=== PATIENT | male | born 1980 | race Caucasian/White ===

== ENCOUNTER 2019-05-22 06:01 | Day surgery (SDC) | payer BC, SELFPAY ==
[2019-05-21 14:21] VITALS: BMI 31.3
[2019-05-22 06:15] VITALS: BP 135/98; PULSE 63; RESP 18; TEMP 36.6; O2SAT 97
[2019-05-22] MEDS: sodium chloride 0.9% 1,000 ML 30 ML IV (06:45)
--- NOTE | 2019-05-22 06:46 | ANES.PREANES ---
Pre-Anesthetic Assessment Pre-Anesthetic Assessment: Height/Weight: Height 1.83 m Weight 104.78 kg Temp Pulse Resp BP Pulse Ox 97.8 F 63 18 135/98 97 05/22/19 06:15 05/22/19 06:15 05/22/19 06:15 05/22/19 06:15 05/22/19 06:15 Preop Diagnosis: umbilical hernia Proposed Procedure: Operation Date: 05/22/19 07:00 Proposed Procedures p Umbilical Hernia Repair 38194 K42.9(Not Applicable) - Bird Avelar MD Familial anesthetic complications: NO trouble Was Beta Stefano taken within 24 hours: N/A Last intake: Intake NPO > 8 hrs Last Liquid Date 05/21/19 Last Solid Date 05/21/19 Social: Social History: No alcohol and No tobacco Exam: Pre-Anes Outpt Exam: alert, oriented x 3, clear to auscultation bilaterally and regular rate & rhythm Airway: Cervical ROM: WNL MP: 3 Additional comments: implant Pulmonary: Pulmonary: Asthma Comments: took inhaler this AM, triggered by activity (uses daily 3-4x a day) CV/HEM: CV/HEM: None reported : : None reported Hepatic: Hepatic: None reported GI: GI: None reported Metabolic: Metabolic: None reported Musc/skel: Musc/skel: None reported Neuropsych: Neuropsych: None reported Anesthetic Plan: ASA status: II Anesthesia: General Meds/Allergies Current Medications: Current Medications Generic Name Dose Route Start Last Admin Trade Name Freq PRN Reason Stop Dose Admin Sodium Chloride 1,000 mls @ 30 ml s/hr 05/21/19 14:15 05/22/19 06:45 Sodium Chloride 0.9% IV 05/22/19 14:14 30 mls/hr .Q24H KAYLAN Administration Data Anesthesia Cardiac Studies: No Data to Display
--- NOTE | 2019-05-22 06:50 | PM.HPUD ---
H&P update H&P Update: DATE OF SURGERY/PROCEDURE: 05/22/19 DATE H&P PERFORMED: 03/20/19 H&P UPDATE INFORMATION: No changes to prior documentation and H&P to be scanned into chart PREOP DIAGNOSIS: Umbilical hernia PLANNED PROCEDURE: Operation Date: 05/22/19 07:00 Proposed Procedures p Umbilical Hernia Repair [id number] K42.9(Not Applicable) - Bird Avelar MD Conscious Sedation: Patient reassessed prior to sedation, with no change noted: Yes PHYSICAL EXAM: alert and oriented x 3 OTHER PERTINENT EXAM FINDINGS: Abdomen: Umbilical hernia Full H&P Medications/Allergies: Current Medications: Current Medications Generic Name Dose Route Start Last Admin Trade Name Freq PRN Reason Stop Dose Admin Sodium Chloride 1,000 mls @ 30 ml s/hr 05/21/19 14:15 05/22/19 06:45 Sodium Chloride 0.9% IV 05/22/19 14:14 30 mls/hr .Q24H KAYLAN Administration
--- NOTE | 2019-05-22 07:02 | PM.HPUD ---
H&P update H&P Update: DATE OF SURGERY/PROCEDURE: 05/22/19 DATE H&P PERFORMED: 03/20/19 PLANNED PROCEDURE: Operation Date: 05/22/19 07:00 Proposed Procedures p Umbilical Hernia Repair 00952 K42.9(Not Applicable) - Bird Avelar MD Full H&P HPI: PRIMARY INDICATION/DIAGNOSIS FOR SURGICAL PROCEDURE: umbililcal hernia PLANNED PROCEDURE: umbilical hernia repair ROS: ROS: negative except for HPI Medications/Allergies: Current Medications: Current Medications Generic Name Dose Route Start Last Admin Trade Name Freq PRN Reason Stop Dose Admin Sodium Chloride 1,000 mls @ 30 ml s/hr 05/21/19 14:15 05/22/19 06:45 Sodium Chloride 0.9% IV 05/22/19 14:14 30 mls/hr .Q24H KAYLAN Administration Perinent History: Family History: nil relevant Pertinent Exam Findings: PHYSICAL EXAM: alert and oriented x 3 OTHER PERTINENT EXAM FINDINGS: Abdomen: soft, NT umbilical hernia repair A&P Assessment and plan (1) Umbilical hernia: Plan for open repair of umbilical hernia Status: Acute Code(s): K42.9 - Umbilical hernia without obstruction or gangrene
[2019-05-22 07:50] VITALS: BP 145/85; PULSE 66; RESP 16; TEMP 36.7; O2SAT 99
[2019-05-22 07:55] VITALS: BP 145/94; PULSE 60; RESP 16; O2SAT 99
[2019-05-22 08:00] VITALS: BP 145/91; PULSE 63; RESP 16; TEMP 36.6; O2SAT 93
--- NOTE | 2019-05-22 08:11 | SUR.PHASEI ---
0805 PT TO OPS AWAKE ALERT DENIES PAIN TO ROOM, VSS PT REQUESTS WATER TO SIP ON. ABD SOFT DRESSING D/I
[2019-05-22 08:18] VITALS: BP 127/91; PULSE 67; RESP 18; TEMP 36.6; O2SAT 94
[2019-05-22 08:41] VITALS: BP 130/84; PULSE 68; RESP 18; O2SAT 96
[2019-05-22] MEDS: HYDROcodone-acetaminophen 5-325 mg Tablet 1 TAB PO (09:01)
--- NOTE | 2019-05-22 09:15 | PM.OP ---
Operative Report Date of procedure: 05/22/19 Pre-op Diagnosis: Umbilical hernia Post-op Diagnosis: 1 cm incarcerated umbilical hernia containing omentum Procedure Done: Open primary repair of umbilical hernia Pathology: none sent Surgeon: Bird Avelar Anesthesia: General Estimated blood loss (mL): 10 Condition: stable Disposition: PACU Procedure: The patient was taken to the operating room and intubated under general anesthesia after IV antibiotic had been administered. The abdomen was prepped and draped in a sterile manner. A 2 cm infraumbilical curvilinear incision was made using a 15 blade, a hernial sac dissected out using electrocautery and dissection with hemostats. The hernial sac was opened and omentum was reduced into the peritoneal cavity. Interrupted sutures using 0 Vicryl was used to close the hernial defect without any tension. The subcutaneous tissue was approximated using 3-0 Vicryl and skin was closed using running subcuticular 4-0 Monocryl sutures. Dermabond was then applied and 10 mL of 0.5% Marcaine was infiltrated around the incision. A 2 x 2 gauze was then placed within the umbilicus and sterile dressings are applied. The patient was stable throughout the procedure.
--- NOTE | 2019-06-08 12:40 | W.PM.OPSFHP ---
Same Day Surgery H&P Indication for Procedure/HPI DATE OF PROCEDURE: June 08, 2019 CHIEF COMPLAINT/INDICATIONFOR SURGICAL PROCEDURE: Umbilical hernia PREOP DIAGNOSIS: Umbilical hernia PLANNED PROCEDRUE: Operation Date: 05/22/19 07:00 Proposed Procedures p Umbilical Hernia Repair 27345 K42.9(Not Applicable) - Bird Avelar MD Medications/Allergies* Home Medications Medication Instructions Recorded Confirmed Type ProAir HFA 1 inh INHALATION QID PRN 05/22/19 06/07/19 History Allergies/Adverse Reactions Allergy/AdvReac Type Severity Reaction Status Date / Time No Known Allergies Allergy Verified 05/22/19 06:16 Pertinent History/Comorbid Conditions* Medical History (Updated 06/07/19 @ 10:58 by Bird Avelar MD) CPAP (continuous positive airway pressure) dependence Surgical History (Updated 06/07/19 @ 10:59 by Bird Avelar MD) H/O oral surgery History of umbilical hernia repair 05/22/2019 Pertinent Exam Findings alert, oriented x 3 and regular rate & rhythm Abdomen: umbilical hernia Recommendations Surgery/Procedure today Coding Level of Care Code Acute Banana Room Cutter for Chg Isaac
== END 2019-05-22 09:10 | disposition home or self-care (01) ==
PROVIDERS: Family Provider Nurse Practitioner; PCP Nurse Practitioner Family; Visit Provider Surgery
PROC: (CPT 49587; principal; 2019-05-22 07:00)
DX: K42.0 Umbilical hernia with obstruction, without gangrene (principal); J45.909 Unspecified asthma, uncomplicated
CPT/HCPCS: 49587; 12345; J0690; J1100; J2405; J2704; J2710; J3010; J3490; J7030

== ENCOUNTER 2019-10-04 06:49 | Outpatient (CLI) | payer BC, SELFPAY ==
--- NOTE | 2019-10-04 10:48 | PFTS_ITS ---
Date of Study:10/04/19 Date of Dictation: MECHANICS: Forced vital capacity (FVC) is normal. Forced expiratory volume in one second (FEV1) is normal. FEV1/FVC is normal. FLOW VOLUME LOOP: Mild scooping likely secondary to small airways disease. LUNG VOLUMES: Total lung capacity (TLC) is normal. Residual volume (RV) is normal. DIFFUSING CAPACITY FOR CARBON MONOXIDE: Normal. INTERPRETATION: The pulmonary function tests are normal. There is no significant postbronchodilator response. The flow volume loop shows mild scooping likely secondary to small airways disease. Lung volumes are normal. Gas exchange is normal. MTDD
== END 2019-10-04 06:50 | disposition home or self-care (01) ==
LOC: RT 06:51
PROVIDERS: PCP Nurse Practitioner Family; Visit Provider Internal Medicine Critical Care Medicine
DX: J45.909 Unspecified asthma, uncomplicated (principal)
CPT/HCPCS: 94060; 94726; 94729; J7611

== ENCOUNTER → 2020-08-26 16:29 | Outpatient (BNVA) | payer BC, SELFPAY | PROVIDERS: PCP Nurse Practitioner Family; Visit Provider Internal Medicine Critical Care Medicine | DX: J45.909 Unspecified asthma, uncomplicated (principal); E55.9 Vitamin D deficiency, unspecified; L25.9 Unspecified contact dermatitis, unspecified cause; Z79.899 Other long term (current) drug therapy; Z13.6 Encounter for screening for cardiovascular disorders | CPT/HCPCS: 80053; 80061; 81003; 82306; 82785; 83036; 84439; 84443; 85025; 86003 ==

== ENCOUNTER → 2020-08-28 07:55 | Outpatient (BNVA) | payer BC, SELFPAY | PROVIDERS: PCP Nurse Practitioner Family; Visit Provider Nurse Practitioner Family | DX: E53.8 Deficiency of other specified B group vitamins (principal) | CPT/HCPCS: 82607 ==

== ENCOUNTER 2022-08-11 07:10 | Day surgery (SDC) | payer BC, SELFPAY ==
[2022-08-09 11:38] VITALS: BMI 31.1
[2022-08-11 07:31] VITALS: BP 135/97; PULSE 73; RESP 18; TEMP 36.4; O2SAT 96
[2022-08-11] MEDS: sodium chloride 0.9% 1,000 ML 30 ML IV (07:40)
--- NOTE | 2022-08-11 08:42 | PM.HP ---
Providers/Chief Complaint Primary Care Provider: Kanika Casiano APN Chief Complaint: K21.9, K62.5 History of Present Illness Ra Dolan is a 41 year old male here for EGD and colonoscopy Medications/Allergies Home Medications Medication Instructions Recorded Confirmed Last Taken Type cholecalciferol (vitamin D3) 1,250 1,250 mcg PO .WEEKLY 08/05/19 08/11/22 07/28/22 History mcg (50,000 unit) capsule (Optimal D3) betamethasone valerate 0.1 % 1 applic topical DAILY PRN skin 08/26/20 08/11/22 Unknown Rx topical cream irritation 14 days #45 grams ketoconazole 2 % topical cream 1 applic topical PRN PRN Rash 08/26/20 08/11/22 Unknown History albuterol sulfate 90 mcg/actuation 1 inh inhalation QID PRN Shortness 09/17/20 08/11/22 08/11/22 Rx aerosol inhaler (ProAir HFA) Of Breath #8.5 grams budesonide-formoterol HFA 80 2 puff inhalation BID #10.2 grams 09/23/21 08/11/22 08/09/22 Rx mcg-4.5 mcg/actuation aerosol inhaler (Symbicort) fluticasone propionate 50 1 spray intranasal DAILY 08/09/22 08/11/22 Unknown History mcg/actuation nasal spray,suspension Allergies Allergy/AdvReac Type Severity Reaction Status Date / Time No Known Allergies Allergy Verified 07/06/22 14:20 PFSH Acute PFSH: Medical History Asthma Blood pressure check Chronic sinusitis Contact dermatitis CPAP (continuous positive airway pressure) dependence Headache Hypertension screen Medication management PHIL on CPAP Vitamin D deficiency Surgical History H/O melanoma excision H/O oral surgery History of umbilical hernia repair 05/22/2019 Family History Father Asthma Allergic rhinitis Social History Smoking and tobacco status: never smoked Alcohol intake: current Alcohol intake frequency: few times a month Lives independently: Yes Household members: spouse Marital status: Current occupational status: employed Current occupation: [employer] Current gender identity: Male Vitals/I&O/Wt Last Vital Signs Temp 97.6 F 08/11/22 07:31 Pulse 73 08/11/22 07:31 Resp 18 08/11/22 07:31 BP 135/97 08/11/22 07:31 Pulse Ox 96 08/11/22 07:31 O2 Del Method Room Air 08/11/22 07:31 Weight last 48 hrs Weight 230 lb A&P Assessment and plan (1) Blood per rectum: (2) GERD (gastroesophageal reflux disease): Plan EGD Diagnostic colonoscopy The risks and benefits of the procedure, including bleeding, infection, intestinal perforation requiring surgery, missed lesion were explained to the patient. The patient is understanding of the risks and wishes to proceed. Attestations Medical Necessity Statement*: Home Coding Level of Care Code Acute Code for Chg Fwd Diagnoses Blood per rectum K62.5 GERD (gastroesophageal reflux disease) K21.9
--- NOTE | 2022-08-11 08:46 | ANES.PREANE2 ---
Pre-Anesthetic Assessment Height/Weight: Height 1.83 m Weight 104.326 kg Temp Pulse Resp BP Pulse Ox O2 Del Method 97.6 F 73 18 135/97 96 Room Air 08/11/22 07:31 08/11/22 07:31 08/11/22 07:31 08/11/22 07:31 08/11/22 07:31 08/11/22 07:31 Preop Diagnosis: Umbilical hernia Operation Date: 08/11/22 08:45 Proposed Procedures p [id number] egd [id number] colon K21.9, K62.5(Not Applicable) - DO taylor Villafuerte Colonoscopy(Not Applicable) - Jeremiah Doshi DO Familial anesthetic complications: none Was Beta Stefano taken within 24 hours: N/A Was Clonidine taken within 24 hours: N/A Last intake: Intake Last Liquid Date 08/10/22 Last Liquid Time 22:00 Last Solid Date 08/09/22 Last Solid Time 22:00 Last Intake: 22:00 Social No alcohol and No tobacco Exam alert, oriented x 3, clear to auscultation bilaterally and regular rate & rhythm Airway Submandibular: within normal limits Cervical ROM: within normal limits Mallampati: Class II Dentition: full Pulmonary Asthma (monthly) and Sleep Apnea (CPAP) CV/HEM None reported None reported Hepatic None reported GI Gastroesophageal Reflux Disease Metabolic None reported Musc/skel None reported Neuropsych None reported Anesthetic Plan ASA status: 2 Anesthesia: MAC Medications/Allergies Home Medications Medication Instructions Recorded Confirmed Last Taken Type cholecalciferol (vitamin D3) 1,250 1,250 mcg PO .WEEKLY 08/05/19 08/11/22 07/28/22 History mcg (50,000 unit) capsule (Optimal D3) betamethasone valerate 0.1 % 1 applic topical DAILY PRN skin 08/26/20 08/11/22 Unknown Rx topical cream irritation 14 days #45 grams ketoconazole 2 % topical cream 1 applic topical PRN PRN Rash 08/26/20 08/11/22 Unknown History albuterol sulfate 90 mcg/actuation 1 inh inhalation QID PRN Shortness 09/17/20 08/11/22 08/11/22 Rx aerosol inhaler (ProAir HFA) Of Breath #8.5 grams budesonide-formoterol HFA 80 2 puff inhalation BID #10.2 grams 09/23/21 08/11/2223 Rx mcg-4.5 mcg/actuation aerosol inhaler (Symbicort) fluticasone propionate 50 1 spray intranasal DAILY 08/09/22 08/11/22 Unknown History mcg/actuation nasal spray,suspension hydrocortisone 2.5 % topical cream 1 applic [place] QID 10 days #30 grams 08/11/22 Unknown Rx with perineal applicator (Anusol-HC) Allergies Allergy/AdvReac Type Severity Reaction Status Date / Time No Known Allergies Allergy Verified 07/06/22 14:20 Current Medications Generic Name Dose Route Start Last Admin Trade Name Freq PRN Reason Stop Dose Admin Sodium Chloride 1,000 mls @ 30 mls/hr 08/11/22 07:30 08/11/22 07:40 Sodium Chloride 0.9% IV 08/12/22 07:29 30 mls/hr .Q24H KAYLAN Administration PFSH Anesthesia Medical History Asthma Blood pressure check Chronic sinusitis Contact dermatitis CPAP (continuous positive airway pressure) dependence Headache Hypertension screen Medication management PHIL on CPAP Vitamin D deficiency Surgical History H/O melanoma excision H/O oral surgery History of umbilical hernia repair 05/22/2019 Family History Father Asthma Allergic rhinitis Social History Smoking and tobacco status: never smoked Alcohol intake: current Alcohol intake frequency: few times a month Substance/Drug Use: never Lives independently: Yes Household members: spouse Marital status: Current occupational status: employed Current occupation: O[employer] Current gender identity: Male Data Anesthesia Cardiac Studies: No Data to Display
[2022-08-11 09:45] VITALS: BP 127/81; PULSE 76; RESP 16; TEMP 36.4; O2SAT 94
[2022-08-11 09:50] VITALS: BP 104/75; PULSE 62; RESP 18; O2SAT 95
[2022-08-11 10:01] VITALS: BP 107/80; PULSE 63; RESP 18; O2SAT 95
--- NOTE | 2022-08-11 14:12 | ANE.PACU2 ---
Inpatient post-anesthesia follow up: Airway intact: Yes Vital signs: Temperature 97.5 F Pulse Rate 63 Respiratory Rate 18 Blood Pressure 107/80 Pulse Oximetry 95 Oxygen Delivery Me thod Room Air Oxygen Flow Rate 3 Fraction of Inspir ed Oxygen Hydration adequate: Yes Nausea and vomiting: No Pain level: 2 Mental status: Baseline
== END 2022-08-11 10:16 | disposition home or self-care (01) ==
PROVIDERS: PCP Nurse Practitioner; Visit Provider Surgery
PROC: 0DJ08ZZ Inspection of Upper Intestinal Tract, Via Natural or Artificial Opening Endoscopic (ICD-10-PCS; CPT 43235; principal; 2022-08-11 08:45)
PROC: 0DJD8ZZ Inspection of Lower Intestinal Tract, Via Natural or Artificial Opening Endoscopic (ICD-10-PCS; CPT 45378; 2022-08-11 08:45)
DX: D12.0 Benign neoplasm of cecum (principal); K64.8 Other hemorrhoids; K21.9 Gastro-esophageal reflux disease without esophagitis; J45.909 Unspecified asthma, uncomplicated; G47.33 Obstructive sleep apnea (adult) (pediatric); Z79.899 Other long term (current) drug therapy
CPT/HCPCS: 43239; 45385; 88305; J2704; J7030

== ENCOUNTER → 2023-08-18 08:28 | Outpatient (BNVA) | payer BC, SELFPAY | PROVIDERS: PCP Nurse Practitioner Family; Visit Provider Nurse Practitioner Family | DX: Z79.899 Other long term (current) drug therapy (principal); R53.83 Other fatigue; Z13.6 Encounter for screening for cardiovascular disorders; J45.909 Unspecified asthma, uncomplicated | CPT/HCPCS: 80053; 80061; 81003; 83036; 84402; 84403; 84443; 85025 ==

== ENCOUNTER 2024-08-27 09:22 | Day surgery (SDC) | payer BC, SELFPAY ==
--- NOTE | 2024-08-27 09:50 | P.ANESASSM_ITS ---
Pre-Anesthetic Assessment Height/Weight: Height 1.83 m Preop Diagnosis: Previous Polyps Operation Date: 08/27/24 11:00 Proposed Procedures p Colonoscopy [id number] G0121 Z12.11(Not Applicable) - Delmer Mane MD Familial anesthetic complications: none Was Beta Stefano taken within 24 hours: N/A Was Clonidine taken within 24 hours: N/A Social Alcohol and No tobacco Exam alert, oriented x 3, clear to auscultation bilaterally and regular rate & rhythm Airway Submandibular: within normal limits Cervical ROM: within normal limits Mallampati: Class II Dentition: full History/ROS No significant history except as noted and No significant complaints Pulmonary Asthma CV/HEM None reported None reported Hepatic None reported GI None reported Metabolic None reported Musc/skel None reported Neuropsych None reported Anesthetic Plan ASA status: 2 Anesthesia: MAC Risk of > 500 ml blood loss (7ml/kg in children): No Medications/Allergies Home Medications ?Medication ?Instructions ?Recorded ?Confirmed ?Last Taken ?Type ketoconazole 2 % topical cream 1 applic topical PRN OH N Rash 08/26/20 08/27/24 3 Months Ago History ~05/30/24 budesonide-formoterol HFA 80 2 puff inhalation BID #10 .2 grams 06/06/23 08/27/24 08/27/24 Rx mcg-4.5 mcg/actuation aerosol inhaler (Symbicort) betamethasone valerate 0.1 % 1 applic topical DAILY OH N skin 08/14/23 08/27/24 08/25/24 Rx topical cream irritation 14 days #45 grams CPAP (Standard Cpap) #1 ea 03/07/24 07/29/24 Unkn own Rx albuterol sulfate 90 mcg/actuation 1 inh inhalation QI D PRN Shortness 08/19/24 08/27/24 Unknown Rx aerosol inhaler Of Breath 90 days #25.5 gram s Allergies Allergy/AdvReac Type Severity Reaction Status Date / Time No Known Allergies Allergy Verified 08/27/24 09:40 [facility] Anesthesia Medical History Encounter for screening for cardiovascular disorders Fatigue Blood pressure check Chronic sinusitis Vitamin D deficiency Medication management Hypertension screen Headache Contact dermatitis Asthma PHIL on CPAP CPAP (continuous positive airway pressure) dependence Surgical History H/O melanoma excision H/O oral surgery History of umbilical hernia repair 05/22/2019 Family History Father Asthma Allergic rhinitis Social History Smoking and tobacco/nicotine status: never used tobacco/nicotine Alcohol intake: current Alcohol intake frequency: few times a month Substance/Drug Use: never Lives independently: Yes Household members: spouse Marital status: Current occupational status: employed Current occupation: O[employer] Do you think of yourself as: Straight/Heterosexual Current gender identity: Male
[2024-08-27] MEDS: sodium chloride 0.9% 500 ML 30 ML IV (10:07)
[2024-08-27 10:08] VITALS: BP 134/93; PULSE 76; RESP 18; TEMP 36.7; O2SAT 95; BMI 31.1
--- NOTE | 2024-08-27 10:10 | W.PM.OPSUD ---
Surgery/Procedure H&P Update DATE OF PROCEDURE: August 27, 2024 DATE H&P PERFORMED: 07/29/24 H&P UPDATE INFORMATION: I have reviewed H&P completed within last 30 days, I have examined patient prior to procedure and No changes to prior documentation PREOP DIAGNOSIS: Previous Polyps PLANNED PROCEDURE: Operation Date: 08/27/24 11:00 Proposed Procedures p Colonoscopy [id number] G0121 Z12.11(Not Applicable) - Delmer Mane MD
[2024-08-27 10:47] VITALS: BP 116/61; PULSE 72; RESP 18; TEMP 36.7; O2SAT 97
[2024-08-27 11:00] VITALS: BP 112/74; PULSE 68; RESP 18; O2SAT 94
--- NOTE | 2024-08-27 11:03 | ANE.PACU2 ---
Inpatient post-anesthesia follow up: Airway intact: Yes Vital signs: Temperature 98.0 F Pulse Rate 68 Respiratory Rate 18 Blood Pressure 112/74 Pulse Oximetry 94 Oxygen Delivery Me thod Room Air Oxygen Flow Rate Fraction of Inspir ed Oxygen Hydration adequate: Yes Nausea and vomiting: No Pain level: 1 Mental status: Baseline
== END 2024-08-27 11:03 | disposition home or self-care (01) ==
PROVIDERS: PCP Nurse Practitioner Family; Visit Provider Student in an Organized Health Care Education/Training Program
PROC: 0DJD8ZZ Inspection of Lower Intestinal Tract, Via Natural or Artificial Opening Endoscopic (ICD-10-PCS; CPT 45378; principal; 2024-08-27 11:00)
DX: Z12.11 Encounter for screening for malignant neoplasm of colon (principal); D12.0 Benign neoplasm of cecum; G47.33 Obstructive sleep apnea (adult) (pediatric); J45.909 Unspecified asthma, uncomplicated
CPT/HCPCS: 45385; 88305; J2704; J7040